=== PATIENT | female | born 1985 | race Caucasian/White ===

== ENCOUNTER 2020-02-22 10:15 | Observation (INO) | payer BC, SELFPAY ==
[2020-02-22 10:30] VITALS: BMI 33.3
[2020-02-22 12:18] LABS: Add Urine Microscopic? YES; Appearance Urine Clear (Clear); Bacteria Urine Trace /hpf; Bilirubin Urine Negative (Negative); Blood Urine Negative (Negative); Color Urine Yellow (Yellow); Glucose Urine UA Negative (Negative); Ketones Urine Negative (Negative); Leukocyte Esterase Ur Trace LEU/UL (Negative); Mucus Urine Rare /lpf; Nitrate Urine Negative (Negative); Protein Urine Negative (Negative); RBC Urine 0-2 /hpf (0-2); Specific Grav Ur 1.012 (1.001-1.035); Squamous Epithelial Cell Urine Many /hpf (Few); Urobilinogen Urine Negative mg/dL (<2.0)
--- NOTE | 2020-02-22 17:22 | OBADM ---
This patient, Adriana Pedraza, admitted to the OB room Labor/Delivery/Recovery 119 for observation. Patient/family oriented to hospital policies and general routines including ID bracelet, bed and alarms, visiting hours, pain management, procedures, bathroom and other care routines, personal items, smoking policy, room service/diet, and visiting hours. Patient/Family are encouraged to report perceived risks to care and to ask questions if they do not understand what they are told or what they should do.
--- NOTE | 2020-02-26 08:21 | P.PNOB_ITS ---
OB - Triage/Final Diagnosis Evaluation Laboratory results: Laboratory Tests 02/22/20 11:56 Urine Color Yellow Urine Appearance Clear Urine pH 7.0 Ur Specific [place] 1.012 Urine Protein Negative Urine Glucose (UA) Negative Urine Ketones Negative Ur Blood (Man) Negative Urine Nitrate Negative Urine Bilirubin Negative Urine Urobilinogen Negative Leukocyte Esterase Rfl Trace H Urine RBC 0-2 Urine WBC 4-6 H Ur Squamous Epith Cells Many H Urine Bacteria Trace Urine Mucus Rare Final Diagnosis (1) False labor: Code(s): O47.9 - False labor, unspecified Status: Acute
== END 2020-02-22 13:55 | disposition home or self-care (01) ==
PROVIDERS: Admitting Provider Obstetrics & Gynecology Gynecology; PCP Family Medicine; Visit Provider Obstetrics & Gynecology Gynecology
DX: O47.03 False labor before 37 completed weeks of gestation, third trimester (principal); Z3A.36 36 weeks gestation of pregnancy
CPT/HCPCS: 81001; G0378; G0379

== ENCOUNTER 2020-03-12 15:10 | Outpatient (CLI) | payer BC, SELFPAY ==
[2020-03-12 15:56] LABS: Hematocrit 32.5 % (37.0-47.0); Hemoglobin 10.8 g/dL (12.0-15.0); Mean Corpuscular HGB Conc 33.2 g/dl (32-36); Mean Corpuscular Hemoglobin 27.4 pg (26-34); Mean Corpuscular Volume 82.5 fl (80-100); Mean Platelet Volume 11.2 fl (7.4-10.4); Platelet Count Result 168 k/mm3 (150-375); Red Blood Count 3.94 M/mm3 (4.2-5.4); Red Cell Distribution Width 14.2 % (11.5-14.5); White Blood Count 9.3 K/mm3 (4.5-10.0)
[2020-03-13 07:09] LABS: Rapid Plasma Reagin Non-Reactive (NonReactive)
--- NOTE | 2020-03-13 14:43 | OP_ITS ---
DATE OF PROCEDURE: 03/13/2020 PREOPERATIVE DIAGNOSES: 1. Intrauterine at 39 weeks. 2. Previous delivery. POSTOPERATIVE DIAGNOSES: 1. Intrauterine at 39 weeks. 2. Previous delivery. PROCEDURE PERFORMED: Repeat low-transverse section. SURGEON: Demetra Bansal M.D. ANESTHESIA: Spinal. FINDINGS: Male infant, 8 pounds 11 ounces. Apgars of 7 and 9. Normal-appearing tubes, ovaries, and uterus. There was dense fascial scar tissue as well as the peritoneum being densely adherent to the mid portion of the uterus. The peritoneum is also densely scarred lateral at the level of the incision. ESTIMATED BLOOD LOSS: 275 cc. PATHOLOGY: None. DESCRIPTION OF PROCEDURE: The patient was taken to the operating room, placed under anesthesia in the dorsal supine position with a leftward tilt. Once anesthesia was deemed adequate, the patient was prepped and draped. A Pfannenstiel skin incision was made with a scalpel and carried down to the underlying layer of fascia. Fascia was nicked in the midline and extended laterally using Mathias scissors. Ochsners were used to tent the fascia, which was then dissected off using sharp dissection due to adhesions. The peritoneum is entered with Metzenbaum and attempted to be extended laterally using blunt traction. Due to dense scar tissue on to the fascia in the midline as well as laterally at the level of the in incision, Bovie cautery is used to extend the peritoneum. The incision was again extended with blunt traction. The bladder blade was placed. The vesicouterine peritoneum was tented, entered with Metzenbaums, extended laterally. The bladder flap was created using sharp and blunt dissection. The bladder blade was replaced. The lower uterine segment was incised in a transverse fashion with a scalpel. The incision was extended laterally using blunt traction. Membranes were ruptured. Clear fluid was noted. The infant's head is elevated and the senior sales assistant applied fundal pressure. Due to all of the scar tissue, there is minimal flexibility of the incision. Decision was made to use vacuum in order to not have my gloved hand in the incision giving more room. Vacuum was applied and on the first attempt the head was delivered. The remainder of the was then delivered. The cord was clamped and cut, and the infant handed to the awaiting OB nurse. The placenta was removed using manual traction. The uterus was cleared of all clots and debris. The uterus was unable to be exteriorized due to all of the adhesions to the peritoneum, especially densely in the midline and to the right. The uterine incision was grasped on the lower edge with a ring forceps. Bladder blade was replaced. Customer Consulting Manager applied retraction to the anterior abdominal wall. The uterine incision was closed using 0 Monocryl in a running locked fashion. Same suture was used to imbricate. Good hemostasis was noted. Bovie cautery was required on the peritoneal surfaces that are oozing. The gutters are irrigated. There is a band of scar tissue that could potentially lead to bowel complications. This was incised with Bovie cautery and the adhesion was released. Palpation reveals no other bands of tissue. The incision was again inspected and noted to be hemostatic. Fascia was closed using 0 Vicryl in a running fashion. Subcutaneous tissues are made hemostatic using Bovie cautery. Skin was closed using 4-0 Vicryl in a subcuticular fashion. Dermaflex was placed. Sponge, instrument and needle counts are correct per the OR staff. The patient received Ancef prior to skin incision. Tere I MT: [facility]
== END 2020-03-12 15:11 | disposition home or self-care (01) ==
PROVIDERS: PCP Family Medicine; Visit Provider Obstetrics & Gynecology Gynecology
DX: Z01.818 Encounter for other preprocedural examination (principal)
CPT/HCPCS: 36415; 85027; 86592; 86850; 86900; 86901

== ENCOUNTER 2020-03-13 05:35 | Inpatient (IN) | payer BC, SELFPAY ==
--- NOTE | 2020-02-18 15:54 | PC.NURSE ---
VERIFIED WITH OR SCHEDULE AND PATIENT--C/S ON 03/13/20 AT 0730 PATIENT GIVEN REQUISITION FOR LAB DRAW ON 03/12/20
[2020-03-12 16:00] VITALS: BMI 34.0
[2020-03-13] VITALS (57 sets, daily range): BP systolic 88–137; BP diastolic 61–105; PULSE 36–107; RESP 18; TEMP 36.2–37; O2SAT 91–100
--- NOTE | 2020-03-13 05:54 | LDADM ---
This patient, Adriana Pedraza, was admitted to Labor/Delivery/Recovery 120 on 03/13/20 at 05:35. Plans for labor, pain management and were discussed with patient. Patient/family oriented to hospital policies and general routines including ID bracelet, bed and alarms, visiting hours, pain management, procedures, bathroom and other care routines, personal items, smoking policy, room service/diet and guest tray routines, infant security routines, and visiting hours. Patient/Family are encouraged to report perceived risks to care and to ask questions if they do not understand what they are told or what they should do. See OBIX for further documentation.
[2020-03-13] MEDS: LACTATED RINGERS 1,000 ML 125 ML IV CONT (06:19)
--- NOTE | 2020-03-13 06:58 | WPDANESEPPF ---
Anes - Initial Pre Proc Eval Procedure: Operation Date: 03/13/20 07:30 Proposed Procedures p Repeat Section - Demetra Bansal MD Date/Time: 03/13/20 06:58 Surgeon: Demetra Bansal MD Pre Op Diagnosis: Scheduled C Section Patient Data Age: 34 Gender: F Height: Weight: Last Vital Signs Pulse 81 03/13/20 06:16 BP 134/89 03/13/20 06:16 Allergies Allergy/AdvReac Type Severity Reaction Status Date / Time No Known Drug Allergies Allergy Unknown X Verified 12/26/17 13:43 Sulfa (Sulfonamide Allergy Hives Verified 02/18/20 15:39 Antibiotics) MOLD, FEATHER PILLOWS, Allergy Severe SINUS Uncoded 07/14/06 14:14 COMFORTERS PROBLEMS Home Medications Medication Instructions Recorded Confirmed Type PNV cmb#95-ferrous fumarate-FA 1 tablet PO DAILY 02/18/20 03/13/20 History [] Patient hx anesthesia problems: none Family hx anesthesia problems: none PMFSH Surgical History Surgical History (Updated 03/13/20 @ 06:58 by Yordan Ferrari MD) Previous delivery, delivered Family History Family History Father Heart disease Arthritis, rheumatoid Grandparent Diabetes mellitus Social History Social History Smoking status: Never smoker Substance use: never Spiritual care concerns: No Anes - Eval Final PreProcedure Day of Procedure 03/13/20 06:58 Patient weight: overweight Heart: regular rate and rhythm Lungs: clear to auscultation Airway: Mallampati scale class 1 Neurological: alert and oriented Last oral intake: >/= 8 hours ASA classification: II Emergent: no Anesthetic plan: proceed Anesthesia type and monitoring: regional spinal and standard monitoring Informed Consent: The patient's anesthetic plan and its attendant risks and benefits were discussed with the patient/family/POA. Questions were solicited and answers provided to the satisfaction of the patient/family/POA.
--- NOTE | 2020-03-13 07:08 | PM.IMHP ---
H&P: HPI History of Present Illness Chief complaint: Scheduled C Section Narrative: Adriana Pedraza is a 34 year old female at 39 wks here for repeat LTCS. uncomplicated but did conceive with Clomid. labs: O+; RPR-; HIV-; HBSAg -; GBS-. [facility] Surgical History Surgical History (Updated 03/13/20 @ 07:12 by Demetra Bansal MD) Previous delivery, delivered S/P LEEP Family History Family History Father Heart disease Arthritis, rheumatoid Grandparent Diabetes mellitus Social History Social History Smoking status: Never smoker Substance use: never Spiritual care concerns: No Meds Home Medications and Allergies Home Medications Medication Instructions Recorded Confirmed Type PNV cmb#95-ferrous fumarate-FA 1 tablet PO DAILY 02/18/20 03/13/20 History [] Allergies Allergy/AdvReac Type Severity Reaction Status Date / Time No Known Drug Allergies Allergy Unknown X Verified 12/26/17 13:43 Sulfa (Sulfonamide Allergy Hives Verified 02/18/20 15:39 Antibiotics) MOLD, FEATHER PILLOWS, Allergy Severe SINUS Uncoded 07/14/06 14:14 COMFORTERS PROBLEMS Vital Signs Vital Signs - 24 hr 03/13/20 05:53 03/13/20 06:01 03/13/20 06:16 Pulse Rate 79 71 81 Blood Pressure 131/85 133/79 134/89 Exam Resp: Auscultation: clear to auscultation bilaterally Cardio: Rate: regular rate Rhythm: regular rhythm GI: GI Palp: Yes Soft to palpation Percussion: Yes other (gravid) Assessment and Plan Assessment and plan (1) 39 weeks gestation of : Code(s): Z3A.39 - 39 weeks gestation of Status: Acute (2) History of : Code(s): Z98.891 - History of uterine scar from previous surgery Status: Acute Assessment and Plan: patient declined trial of labor and wishes to proceed with repeat csection
[2020-03-13] MEDS: ceFAZolin 2 GM/D5W 50 ML 2 GM/50 ML BAG IVPB (07:18)
--- NOTE | 2020-03-13 08:25 | PM.OP ---
Procedure Note - Brief Procedure Note - Brief Date of procedure: 03/13/20 Pre-op diagnosis: Scheduled C Section IUP 39 wks; Prior csection Post-op diagnosis: same Procedure performed: repeat LTCS Anesthesia: spinal Surgeon: Demetra Bansal MD Estimated blood loss (mL): 275 Drains: Yes (blake) Packing: No Pathology: none sent Complications: No immediate complications Condition: stable Disposition: PACU Findings: male; 8#11oz; Apgars 7/9; normal appearing tubes, ovaries, and uterus; dense scar tissue from peritoneum to mid uterus; fascia densely scarred
--- NOTE | 2020-03-13 08:27 | PM.OBDSVD ---
DS: Diagnosis Admitting Diagnosis Admitting Diagnosis: 39 weeks gestation of Discharge Diagnosis (1) History of : Code(s): Z98.891 - History of uterine scar from previous surgery Status: Acute (2) 39 weeks gestation of : Code(s): Z3A.39 - 39 weeks gestation of Status: Acute (3) delivery delivered: Code(s): O82 - Encounter for delivery without indication Status: Acute OB - DS: Summary OB Procedures : Ultrasound OB Procedures Intrapartum: low cervical, transverse OB Procedures: : None Peripartum Data Infant Delivery Method: Section Procedures: Procedures Operation Date: 03/13/20 07:30 <No data on this case meets the specified criteria> complications: none Status at Discharge Functional status at discharge: independent ambulation Overall status at discharge: patient is progressing back to baseline Time Spent with Patient Time attestation: Total time spent providing and/or coordinating discharge services: Discharge Plan Discharge Attending physician on discharge: Demetra Bansal Discharging Clinician: Nicanor Loredo Anticipated Discharge Date/Time: 03/15/20 08:28 Patient Disposition: Home, Self-Care Activity: may drive after 2 weeks and pelvic rest Diet: regular Wound Care Instructions: incision open to air Discharge Instructions: Education: Mom and Baby Guide Given to: Mother Follow-Up: Call your delivering provider's office for an appointment to be seen. Mom and baby should come to the [facility] for the follow-up appointment. Appointment Date/Time: March 17, 2020 at 10:00 am. What to expect at your follow-up visit: Physical Assessment Call [phone] if you are unable to keep your appointment time. BREAST CARE: 1. Wear a snug supportive bra. 2. For engorgement discomfort: Breast Feeding: A. Apply warm moist washcloths B. Express milk as needed to relieve engorgement C. Wear loose clothing 3. For sore nipples: A. Identify correct latch-on B. Apply warm moist washcloths before and after nursing C. Air dry nipples after nursing D. May apply Lansinoh cream to nipples ABDOMINAL INCISION: 1. Allow incision to air dry 2. Do NOT use lotions for powders on your incision 3. When showering, allow soap and water to run over the incision, but do not wash incision PERINEAL CARE: 1. Until bleeding stops, use your césar bottle after urinating 2. Change your pad frequently throughout the day 3. You may take sitz baths several times a day (fill your bathtub with warm water and soak for 20 minutes.) Do NOT bathe in the water 4. No tub baths until seen by your physician - You may shower ACTIVITY: 1. Rest as much as possible. 2. Do not exercise or lift anything heavier than your baby (such as laundry or other children.) 3. Avoid stairs or driving as much as possible. 4. Do not put anything into the vagina. No douching, tampons, or sexual activity until seen by physician. NOTIFY PHYSICIAN IF YOU HAVE ANY QUESTIONS OR IF ANY OF THE FOLLOWING SYMPTOMS OCCUR: 1. If your incision becomes red, swollen, or more painful than what you have experienced in the hospital. 2. If your vaginal bleeding becomes foul smelling. 3. If your vaginal bleeding becomes more heavy than a period or if your bleeding changes from pink to bright red. However, you may pass an occasional walnut-sized clot once or twice for the first week . 4. If you experience a sharp, shooting pain in you calves. 5. If you discover a hard, reddened area on your breast or if you experience flu-like symptoms. DIET: 1. Eat regular, well-balanced meals. 2. Drink plenty of fluids daily. If , drink to thirst. Stand Alone Forms: General Discharge Information Follow-up/Referrals: Demetra Bansal MD
--- NOTE | 2020-03-13 09:41 | OP_ITS ---
This report was moved to the correct visit, [id number] on 03/14/2020. Original report was signed by Dr. Demetra Bansal on 03/13/2020 @ 1600. DATE OF PROCEDURE: 03/13/2020 PREOPERATIVE DIAGNOSES: 1. Intrauterine at 39 weeks. 2. Previous delivery. POSTOPERATIVE DIAGNOSES: 1. Intrauterine at 39 weeks. 2. Previous delivery. PROCEDURE PERFORMED: Repeat low-transverse section. SURGEON: Demetra Bansal M.D. ANESTHESIA: Spinal. FINDINGS: Male , 8 pounds 11 ounces. Apgars of 7 and 9. Normal-appearing tubes, ovaries, and uterus. There was dense fascial scar tissue as well as the peritoneum being densely adherent to the mid portion of the uterus. The peritoneum is also densely scarred lateral at the level of the incision. ESTIMATED BLOOD LOSS: 275 cc. PATHOLOGY: None. DESCRIPTION OF PROCEDURE: The patient was taken to the operating room, placed under anesthesia in the dorsal supine position with a leftward tilt. Once anesthesia was deemed adequate, the patient was prepped and draped. A Pfannenstiel skin incision was made with a scalpel and carried down to the underlying layer of fascia. Fascia was nicked in the midline and extended laterally using Mathias scissors. Ochsners were used to tent the fascia, which was then dissected off using sharp dissection due to adhesions. The peritoneum is entered with Metzenbaum and attempted to be extended laterally using blunt traction. Due to dense scar tissue on to the fascia in the midline as well as laterally at the level of the in incision, Bovie cautery is used to extend the peritoneum. The incision was again extended with blunt traction. The bladder blade was placed. The vesicouterine peritoneum was tented, entered with Metzenbaums, extended laterally. The bladder flap was created using sharp and blunt dissection. The bladder blade was replaced. The lower uterine segment was incised in a transverse fashion with a scalpel. The incision was extended laterally using blunt traction. Membranes were ruptured. Clear fluid was noted. The infant's head is elevated and the parts room assistant applied fundal pressure. Due to all of the scar tissue, there is minimal flexibility of the incision. Decision was made to use vacuum in order to not have my gloved hand in the incision giving more room. Vacuum was applied and on the first attempt the head was delivered. The remainder of the infant was then delivered. The cord was clamped and cut, and the infant handed to the awaiting OB nurse. The placenta was removed using manual traction. The uterus was cleared of all clots and debris. The uterus was unable to be exteriorized due to all of the adhesions to the peritoneum, especially densely in the midline and to the right. The uterine incision was grasped on the lower edge with a ring forceps. Bladder blade was replaced. Hop Separator applied retraction to the anterior abdominal wall. The uterine incision was closed using 0 Monocryl in a running locked fashion. Same suture was used to imbricate. Good hemostasis was noted. Bovie cautery was required on the peritoneal surfaces that are oozing. The gutters are irrigated. There is a band of scar tissue that could potentially lead to bowel complications. This was incised with Bovie cautery and the adhesion was released. Palpation reveals no other bands of tissue. The incision was again inspected and noted to be hemostatic. Fascia was closed using 0 Vicryl in a running fashion. Subcutaneous tissues are made hemostatic using Bovie cautery. Skin was closed using 4-0 Vicryl in a subcuticular fashion. Dermaflex was placed. Sponge, instrument and needle counts are correct per the OR staff. The patient received Ancef prior to skin incision.
[2020-03-13] MEDS: KETOROLAC 30 MG/ML VIAL (*BKC) IV PUSH (10:07)
[2020-03-13] MEDS: OXYTOCIN 30 UNITS/NS 500 ML 30 UNITS/500 ML BAG 125 UNITS IV CONT (10:07)
--- NOTE | 2020-03-13 11:29 | PC.NURSE ---
Addendum entered by Mansi Pelayo RN 03/13/20 11:30: Admitted to floor at 1047. Original Note: Patient transferred to post room #282 via stretcher. Support person present. Oriented to unit, room, information board, rooming in, admission packet and security measures. Patient verbalizes understanding.
--- NOTE | 2020-03-13 12:50 | PC.NURSE ---
Consulted with patient, mother reports infant eagerly fed for first two feedings and now is sleepy and difficult to latch. Reviewed feeding cues, frequencies, duration of feedings, feeding elimination flow sheet, and signs of adequate intake. Demonstrated stimulation techniques to wake infant for feeding. Assisted with infant to breast. Reviewed positioning/alignment in cross cradle, holding breast in U hold and guided asymmetrical latch on. was able to latch correctly with first attempt. nursed eagerly, with steady draws and frequent swallowing noted. Reviewed signs of a correct latch, effective nursing and suck swallow ratio. was able to maintain latch without discomfort to mother. Nipple care reviewed. Advised to stimulate during feeding to increased intake and assist with maintaining deep latch with consistent suck swallow. Instructed mother to call out for RN assistance if she is unable to latch infant for feeding or she has discomfort with nursing. Instructed feeding should be initiated three hours from start of last feeding or if feeding cues are noted before. Mother voiced understanding of information shared.
--- NOTE | 2020-03-13 14:40 | OP_ITS ---
Operative Note Signed This report was moved to the correct visit, [id number] on 03/14/2020. Original report was signed by Dr. Demetra Bansal on 03/13/2020 at 1600. PREOPERATIVE DIAGNOSES: 1. Intrauterine at 39 weeks. 2. Previous delivery. POSTOPERATIVE DIAGNOSES: 1. Intrauterine at 39 weeks. 2. Previous delivery. PROCEDURE PERFORMED: Repeat low-transverse section. SURGEON: Demetra Bansal M.D. ANESTHESIA: Spinal. FINDINGS: Male infant, 8 pounds 11 ounces. Apgars of 7 and 9. Normal-appearing tubes, ovaries, and uterus. There was dense fascial scar tissue as well as the peritoneum being densely adherent to the mid portion of the uterus. The peritoneum is also densely scarred lateral at the level of the incision. ESTIMATED BLOOD LOSS: 275 cc. PATHOLOGY: None. DESCRIPTION OF PROCEDURE: The patient was taken to the operating room, placed under anesthesia in the dorsal supine position with a leftward tilt. Once anesthesia was deemed adequate, the patient was prepped and draped. A Pfannenstiel skin incision was made with a scalpel and carried down to the underlying layer of fascia. Fascia was nicked in the midline and extended laterally using Mathias scissors. Ochsners were used to tent the fascia, which was then dissected off using sharp dissection due to adhesions. The peritoneum is entered with Metzenbaum and attempted to be extended laterally using blunt traction. Due to dense scar tissue on to the fascia in the midline as well as laterally at the level of the in incision, Bovie cautery is used to extend the peritoneum. The incision was again extended with blunt traction. The bladder blade was placed. The vesicouterine peritoneum was tented, entered with Metzenbaums, extended laterally. The bladder flap was created using sharp and blunt dissection. The bladder blade was replaced. The lower uterine segment was incised in a transverse fashion with a scalpel. The incision was extended laterally using blunt traction. Membranes were ruptured. Clear fluid was noted. The 's head is elevated and the religious assistant applied fundal pressure. Due to all of the scar tissue, there is minimal flexibility of the incision. Decision was made to use vacuum in order to not have my gloved hand in the incision giving more room. Vacuum was applied and on the first attempt the head was delivered. The remainder of the was then delivered. The cord was clamped and cut, and the infant handed to the awaiting OB nurse. The placenta was removed using manual traction. The uterus was cleared of all clots and debris. The uterus was unable to be exteriorized due to all of the adhesions to the peritoneum, especially densely in the midline and to the right. The uterine incision was grasped on the lower edge with a ring forceps. Bladder blade was replaced. Oracle Identity Management Consultant applied retraction to the anterior abdominal wall. The uterine incision was closed using 0 Monocryl in a running locked fashion. Same suture was used to imbricate. Good hemostasis was noted. Bovie cautery was required on the peritoneal surfaces that are oozing. The gutters are irrigated. There is a band of scar tissue that could potentially lead to bowel complications. This was incised with Bovie cautery and the adhesion was released. Palpation reveals no other bands of tissue. The incision was again inspected and noted to be hemostatic. Fascia was closed using 0 Vicryl in a running fashion. Subcutaneous tissues are made hemostatic using Bovie cautery. Skin was closed using 4-0 Vicryl in a subcuticular fashion. Dermaflex was placed. Sponge, instrument and needle counts are correct per the OR staff
[2020-03-13] MEDS: KCL 20 MEQ/D5/0.45% SOD CHL 1,000 ML 125 ML IV CONT (15:16)
[2020-03-13] MEDS: IBUPROFEN 600 MG TABLET PO (15:22)
--- NOTE | 2020-03-13 16:20 | PC.NURSE ---
Mother called out for assist with latch reporting is sleepy and difficult to latch. Reviewed infant feeding cues, frequencies, duration of feedings, feeding elimination flow sheet, and signs of adequate intake. Demonstrated stimulation techniques to wake for feeding. Assisted with to breast. Reviewed positioning/alignment in cross cradle, holding breast in U hold and guided asymmetrical latch on. Infant was able to latch correctly with first attempt. nursed eagerly, with steady draws and frequent swallowing noted. Reviewed signs of a correct latch, effective nursing and suck swallow ratio. was able to maintain latch without discomfort to mother. Nipple care reviewed. Advised to stimulate during feeding to increased intake and assist with maintaining deep latch with consistent suck swallow. Instructed mother to call out for RN assistance if she is unable to latch infant for feeding or she has discomfort with nursing. Instructed feeding should be initiated three hours from start of last feeding or if feeding cues are noted before. Mother voiced understanding of information shared.
[2020-03-13] MEDS: ONDANSETRON INJ 4 MG/2 ML VIAL IV PUSH (18:14)
[2020-03-14] MEDS: IBUPROFEN 600 MG TABLET PO ×2 (05:07→10:55)
[2020-03-14 05:20] VITALS: BP 133/78; PULSE 87; RESP 18; TEMP 37.3
[2020-03-14 06:03] LABS: Basophils Percent Auto 0.2 % (0.2-1.2); Eosinophils Absolute Auto 0.1 K/mm3 (0-0.3); Eosinophils Percent Auto 0.7 % (0-4.4); Hematocrit 28.7 % (37.0-47.0); Hemoglobin 9.5 g/dL (12.0-15.0); Immature Granulocyte Percent A 0.8 % (0-0.5); Lymphocytes Absolute Auto 1.55 K/mm3 (0.9-3.2); Lymphocytes Percent Auto 12.9 % (18.3-44.2); Mean Corpuscular HGB Conc 33.1 g/dl (32-36); Mean Corpuscular Hemoglobin 27.2 pg (26-34); Mean Corpuscular Volume 82.2 fl (80-100); Mean Platelet Volume 11.5 fl (7.4-10.4); Monocytes Absolute Auto 0.8 K/mm3 (0.1-0.6); Monocytes Percent Auto 6.9 % (2.6-8.5); Neutrophils Absolute Auto 9.4 K/mm3 (1.3-6.7); Neutrophils Percent Auto 78.5 % (45.5-73.1); Platelet Count Result 163 k/mm3 (150-375); Red Blood Count 3.49 M/mm3 (4.2-5.4); Red Cell Distribution Width 14.3 % (11.5-14.5)
[2020-03-14 08:10] VITALS: BP 120/68; PULSE 82; RESP 18; TEMP 37; O2SAT 97
[2020-03-14] MEDS: DOCUSATE SODIUM 100 MG CAPSULE PO (09:24)
[2020-03-14] MEDS: POLYSACCHARIDE IRON COMPLEX 150 MG CAPSULE PO (09:24)
[2020-03-14] MEDS: MULTIVIT/MIN/PREN/FOL AC/IRON TABLET 1 TAB PO (09:24)
[2020-03-14] MEDS: CALCIUM CARBONATE (TUMS) 500 MG (200 MG ELEMENTAL) PO (11:05)
--- NOTE | 2020-03-14 11:07 | P.PNOB_ITS ---
OB - PN: Subj Subjective Date/time seen: 03/14/20 11:07 Patient comments: no complaints and pain well controlled baby status: doing well OB - PN: Obj Data Labs CBC & Chem 7: 03/14/20 05:16 Labs: Laboratory Results - last 24 hr 03/14/20 05:16 WBC 12.0 H RBC 3.49 L Hgb 9.5 L Hct 28.7 L MCV 82.2 MCH 27.2 MCHC 33.1 RDW 14.3 Plt Count 163 MPV 11.5 H Immature Gran % (Auto) 0.8 H Neut % (Auto) 78.5 H Lymph % (Auto) 12.9 L [place] % (Auto) 6.9 Eos % (Auto) 0.7 Baso % (Auto) 0.2 Lymph # (Auto) 1.55 [place] # (Auto) 0.8 H Eos # (Auto) 0.1 Baso # (Auto) 0.0 Abs Immat Gran (auto) 0.10 H Absolute Neuts (auto) 9.4 H Absolute Nucleated RBC 0.0 Nucleated RBC % 0.0 OB - PN A/P Assessment and Plan (1) delivery delivered: Code(s): O82 - Encounter for delivery without indication Status: Acute Assessment and Plan: incision clean and dry desires home today. Time Spent With Patient Time: Total time spent is greater than 50% in coordination of care (as documented) at patient's floor/unit and/or counseling patient:
--- NOTE | 2020-03-14 11:24 | WPDANLDPN2 ---
Anes-Prog Note L&D Date/Time: 03/14/20 11:24 Comfortable throughout: section Neuraxial method: spinal Epidural/Spinal procedure site: clean & non-tender Neuro status: Neuro function grossly intact. Cardiovascular status: normal Respiratory status: normal Airway patency: baseline Mental status: baseline Post-Op hydration status: normal Vital Signs: Last Vital Signs Temp 37.0 C 03/14/20 08:10 Pulse 82 03/14/20 08:10 Resp 18 03/14/20 08:10 BP 120/68 03/14/20 08:10 Pulse Ox 97 03/14/20 08:10 I/O: Intake & Output 03/13/20 03/14/20 03/14/20 23:59 07:59 15:59 Intake Total 1600 850 Output Total 1200 3975 Balance 400 -3125 Post-procedural complaints: none Patient feedback: Patient satisfied with anesthetic care.
--- NOTE | 2020-03-14 11:24 | WPDANLDNPN2 ---
Anes-Prog Note L&D-Neuraxial Date/Time: 03/14/20 11:24 Neuraxial medications: intrathecal PF morphine Opiod-related complaints: none Patient feedback: Patient satisfied with post-operative pain management.
[2020-03-17 10:39] VITALS: BP 142/98; PULSE 85; RESP 20; TEMP 37.4; O2SAT 98
== END 2020-03-14 13:22 | disposition home or self-care (01) | DRG 788 ==
LOC: ANHLDR 08:28 → ANHOB2 03-14 12:33 → ANHLDR 03-17 11:26 → ANHOB2 03-17 11:26
PROVIDERS: Admitting Provider Obstetrics & Gynecology Gynecology; PCP Family Medicine; Visit Provider Obstetrics & Gynecology
PROC: 10D00Z1 Extraction of Products of Conception, Low, Open Approach (ICD-10-PCS; CPT 59514; principal; 2020-03-13 07:30)
DX: O34.211 Maternal care for low transverse scar from previous cesarean delivery (principal); Z37.0 Single live birth; Z3A.39 39 weeks gestation of pregnancy
CPT/HCPCS: 36415; 85025; A9270; J0131; J0690; J1885; J2274; J2405; J2590; J3010; J3480; J7120

== ENCOUNTER → 2022-03-03 14:56 | Outpatient (CLI) | payer OTHER, SELFPAY ==
--- NOTE | ~2022-03-03 | MM_ITS ---
EXAMINATION: MM screening [facility] HISTORY: Screening TECHNIQUE: Craniocaudal and mediolateral oblique 3-D tomosynthesis images were obtained and synthetic 2-D images were generated. CAD analysis was submitted and interpreted. COMPARISON: No prior mammogram is available for comparison at this institution. BREAST PARENCHYMAL COMPOSITION: There are scattered areas of fibroglandular density. FINDINGS: There is no evidence of suspicious mass, calcification, or architectural distortion to sugg est malignancy in either breast. There has been no suspicious interval change. IMPRESSION: 1. No mammographic evidence of malignancy. 2. Recommend routine screening mammography in one year. BI-RADS Category 1: Negative Reviewed, dictated and finalized at location A.
== END ==
PROVIDERS: PCP Family Medicine; Visit Provider Surgery Plastic and Reconstructive Surgery
DX: Z12.31 Encounter for screening mammogram for malignant neoplasm of breast (principal)
CPT/HCPCS: 77063; 77067

== ENCOUNTER 2022-04-09 08:01 | Outpatient (CLI) | payer OTHER, SELFPAY ==
--- NOTE | 2022-04-09 08:11 | ECG_ITS ---
Measurements Intervals Ralph Rate: 78 P: 50 [place]: 138 QRS: 40 QRSD: 80 T: 29 QT: 356 QTc: 406 Interpretive Statements SINUS RHYTHM BASELINE ARTIFACT NORMAL ECG NO PREVIOUS ECG AVAILABLE FOR COMPARISON Electronically Signed On 04-09-2022 16:58:00 CDT by Gomez Solitario M.D.
[2022-04-09 08:25] LABS: Hemoglobin 13.7 g/dL (12.0-15.0)
== END 2022-04-09 08:02 | disposition home or self-care (01) ==
PROVIDERS: Anesthesiology; PCP Family Medicine; Visit Provider Surgery Plastic and Reconstructive Surgery
DX: E65 Localized adiposity (principal)
CPT/HCPCS: 36415; 85014; 85018; 93005

== ENCOUNTER 2022-04-13 00:22 | Day surgery (SDC) | payer OTHER, SELFPAY ==
[2022-04-06 13:55] VITALS: BMI 28.3
--- NOTE | 2022-04-06 14:00 | PC.NURSE ---
Report to the Outpatient Waiting Room, entrance under the green pavilion located off [facility], at time _0800_ on date _04-13-22_. OR Time: _1000_. - You and your visitor will be asked a series of questions to screen for COVID 19 for your protection. - Only one visitor is allowed at this time. - The patient visitor is requested to leave or wait in car when not with patient. - A mask is required within the hospital. Patients may have clear liquids (water, carbonated beverages, clear teas, apple juice) until 3 hours prior to surgery with a maximum of 20 ounces. - No food from midnight until time of surgery Take the following medications with a SIP of water the morning of surgery: ___None Medications to discontinue per physician ____None Date to take last dose Please no make-up, nail cape verdean, hairspray, perfume, deodorant, or body powder the day of surgery. No jewelry (including any body piercings) or valuables the day of surgery, leave them at home. Please take a shower or bath the night before, or the morning of, surgery with an antibacterial soap. Wear comfortable, loose fitting clothing. Children are encouraged to wear pajamas. - Jewelry must be removed prior to entering the operating room. Rings and piercings that are not removed may be cut off. - The hospital will not accept responsibility for valuables. - Please leave all valuables, including medications, at home the day of surgery. If you are going home after surgery, a licensed local city driver must drive you home. - NO public transportation without another adult. - We recommend that an adult stay with you for 24 hours following discharge. - We also recommend that you do not drive, make important decision, drink alcoholic beverages, or take any drugs that were not prescribed by your health care provider for at least 24 hours after your discharge time. Follow any additional instructions given to you from your surgeon. If you or anyone in your household have experienced Covid symptoms in the past week, please notify your surgeon or the nurse liaison at the phone number below for possible testing. Telephone instructions given to __Patient and asked if any additional questions and then verbalized understanding. Patient advised to call surgeon office or pre surgery nurse liaison [phone] if any additional questions.
--- NOTE | 2022-04-12 13:50 | P.PNAN_ITS ---
Anes - Initial Pre Proc Eval Procedure: Operation Date: 04/13/22 10:00 Proposed Procedures p Abdominoplasty - Senthil Rasheed MD s Liposuction of Abdomen - Senthil Rasheed MD s Bilateral Breast Augmentation - Senthil Rasheed MD Date/Time: 04/12/22 13:50 Surgeon: Senthil Rasheed MD Pre Op Diagnosis: skin laxity, localized adiposity Patient Data Age: 36 Gender: F Height: 1.63 m Weight: 75 kg Allergies Allergy/AdvReac Type Severity Reaction Status Date / Time Sulfa (Sulfonamide Allergy Severe Hives Verified 04/13/22 08:14 Antibiotics) MOLD, FEATHER PILLOWS, Allergy Severe SINUS Uncoded 04/13/22 08:14 COMFORTERS PROBLEMS Home Medications Medication Instructions Recorded Confirmed Type docusate sodium 100 mg capsule 100 mg PO DAILY #14 caps 03/30/22 04/13/22 Rx (Colace) ondansetron HCl 4 mg tablet 4 mg PO Q8H #21 tabs 03/30/22 04/13/22 Rx carisoprodol 350 mg tablet (Soma) 350 mg PO TID PRN muscle pain #21 03/31/22 04/13/22 Rx tabs oxycodone-acetaminophen 5 mg-325 1 tablet PO Q6H PRN pain #30 tabs 03/31/22 04/13/22 Rx mg tablet (Percocet) cetirizine 10 mg tablet (Zyrtec) 10 mg PO DAILY 04/06/22 04/13/22 History Patient hx anesthesia problems: none Family hx anesthesia problems: none Results Review: All pre-operative results and documents have been reviewed as part of the pre- operative evaluation. FORMERLY [facility], [facility] Past Medical History Medical History (Updated 04/12/22 @ 13:51 by Yogesh Shelton MD) Overweight (BMI 25.0-29.9) Surgical History Surgical History Previous delivery, delivered S/P LEEP Family History Family History Father Heart disease Arthritis, rheumatoid Grandparent Diabetes mellitus Social History Social History Smoking status: Never smoker Substance use: never Living arrangements: with family Spiritual care concerns: No Anes - Eval Final PreProcedure Day of Procedure 04/12/22 13:50 Patient weight: overweight Heart: regular rate and rhythm Lungs: clear to auscultation Airway: Mallampati scale class 1 Neurological: alert and oriented Last oral intake: >/= 8 hours ASA classification: II Emergent: no Anesthetic plan: proceed Anesthesia type and monitoring: general LMA and standard monitoring Results Review: All pre-operative results and documents have been reviewed as part of the pre- operative evaluation. Informed Consent: The patient's anesthetic plan and its attendant risks and benefits were discussed with the patient/family/POA. Questions were solicited and answers provided to the satisfaction of the patient/family/POA.
[2022-04-13] VITALS (11 sets, daily range): BP systolic 113–145; BP diastolic 75–93; PULSE 80–100; RESP 10–20; TEMP 36.4–37.3; O2SAT 95–100
[2022-04-13] MEDS: LACTATED RINGERS 1,000 ML 30 ML IV CONT ×2 (08:50→14:43)
[2022-04-13 09:11] LABS: Urine Cotinine NEGATIVE
--- NOTE | 2022-04-13 09:37 | WPDHPUPDATE1 ---
History and Physical Update Update Date/Time: 04/13/22 09:37 History and Physical has been reviewed, including an updated exam of the patient. There are NO changes in the patient's condition. Risks, benefits, and alternatives have been discussed and questions answered. Patient agrees to proceed with procedure.
--- NOTE | 2022-04-13 10:03 | W.PM.PROC2 ---
Procedure Note - Detailed Date of Procedure 04/13/22 Pre-op Diagnosis skin laxity, localized adiposity Post-op Diagnosis Same Procedure Performed 1. Bilateral augmentation mammaplasty 2. Progressive tension abdominoplasty with suction lipectomy Surgeon Senthil Rasheed MD Anesthesia General Findings Bilateral dual plane 2 augmentation mammaplasty Cecy Maynard SoftTouch 320cc Silicone Right REF# [id number] SN [id number] Left REF# [id number] SN [id number] Lipoaspirate: 2300 cc Tissue removed abdomen: 1246 grams Description of Procedure They are here today for the above. Previously and again today the risks, benefits, alternatives were discussed in extensive detail. I wanted them to be very realistic about the risks involved as well as expectations. We discussed aftercare and what to monitor for. I was very upfront about the risks of wound breakdown leading to loss of skin, open wounds, and need for additional procedures with permanent abdominal deformity. We discussed DVT/PE risks and management. Made sure answered all of their questions to their satisfaction today and consent was obtained. Marked in the preoperative holding area with their verification. The patient was taken to the operating room placed supine on the operating table. Anesthesia was provided by anesthesiology. A surgical time-out was taken. We cleansed the skin and 1% lidocaine and 0.25% Marcaine with epinephrine was used anesthetize as a field block for the breast. She was prepped and draped in a standard sterile fashion. Breast Tegaderm nipple Graham were placed. A 15 blade used to make an incision along the inframammary fold. Dissection was continued at 45 degree angle until the chest wall as identified. Elevated superficial to pectoralis fascia in a dual plane 2 fashion. I incised the pectoralis major along its inferior border and completely released the inferior border leaving the medial border intact. I created a subpectoral pocket in the appropriate dimensions based on our preoperative planning for the implant. I then copiously irrigated with saline solution and verified a strict hemostasis. Next the use a triple antibiotic and Betadine containing solution to irrigate the pocket. I washed my gloves with the triple antibiotic and Betadine solution. We washed the implant immediately upon opening it with this solution and only opened it when we needed it. I used implant funnel and no-touch technique. The implant was introduced into the pocket using the funnel. Having verified positioning of the implant this was closed using 2-0 Vicryl followed by 3-0 Monocryl in a running subcuticular 4-0 Monocryl followed by tissue glue. Abdomen I placed the patient in a flexed position to verify the upper and lower markings would reach. I then placed supine. A thorough abdominal examination was completed. Stab incisions were made and tumescent solution infiltrated. A liposuction basket cannula was utilized to provide suction lipectomy based on S.A.F.E. technique using a 5mm basket cannula. This was in deep in multiple planes and passes based on pre-operative planning, intraoperative observations, and rolling pinch test which was in full agreement. Patient had been prepped 360 prepped and was turned to each lateral decubitus position to maximize contour. She as placed supine. A 10 blade was used to make the upper incision. I continued dissection down to the level of fascia. Elevated just what was necessary for repair of the diastasis. I then again flexed the bed to verify the upper skin flap would reach the lower markings without tension. Once verified I placed her supine once again and a 10 blade used to make the lower incision. I elevated up to level the umbilicus and left the umbilicus intact on a well-vascularized stalk. The intervening tissue was removed. A 2 mm blunt cannula with 0.5% bupivicaine was injected deep to the fascia bilaterally. I plicated the diasta
[2022-04-13] MEDS: LACTATED RINGERS IRRIG 1,000 ML, LIDOCAINE HCL 1% LOCAL INJ 50 ML, EPINEPHrine HCL INJ ... INFILTRATE (10:11)
[2022-04-13] MEDS: NACL 0.9% IRRIG POUR BOTTLE 900 ML, GENTAMICIN SULFATE INJ 160 MG, ceFAZolin 2 GM, POVI... IRRIGATION (10:11)
[2022-04-13] MEDS: BUPIVACAINE HCL 0.25% PF 30 ML VIAL INFILTRATE (10:11)
[2022-04-13] MEDS: ceFAZolin 2 GM/D5W 50 ML 2 GM/50 ML BAG IVPB (10:11)
[2022-04-13] MEDS: LIDO 1%/EPINEPHRINE/PF 1:200,000 30 ML VIAL XX (10:11)
[2022-04-13] MEDS: TRANEXAMIC ACID 1,000MG/ISO100 1,000 MG/100 ML BAG 200 MG IVPB (10:11)
[2022-04-13] MEDS: ONDANSETRON INJ 4 MG/2 ML VIAL IV PUSH ×2 (15:24→20:53)
[2022-04-13] MEDS: fentaNYL CITRATE INJ (*CRX) 100 MCG/2 ML VIAL 25 MCG IV PUSH ×4 (15:43→15:55)
--- NOTE | 2022-04-13 16:07 | ADMGEN ---
This patient, Adriana Pedraza, was admitted to OB 2nd Floor Room 289-00. Patient/family oriented to hospital policies and general routines including ID bracelet, bed and alarms, visiting hours, pain management, procedures, bathroom and other care routines, personal items, smoking policy, room service/diet, and visiting hours. Information on how to activate the Rapid Response Team has been discussed. Patient/Family are encouraged to report perceived risks to care and to ask questions if they do not understand what they are told or what they should do.
[2022-04-13] MEDS: LACTATED RINGERS 1,000 ML 125 ML IV CONT (16:11)
[2022-04-13 16:58] LABS: Estimated CRCL calculation 95 ml/min; Estimated Glomerular Filt Rate > 60
[2022-04-13] MEDS: MORPHINE SULFATE (*CRX) 2 MG/ML INJ IV PUSH (17:22)
[2022-04-13] MEDS: diazePAM (*CRX) 5 MG TABLET PO (19:12)
[2022-04-13] MEDS: carisoprodoL (*CRX) 350 MG TABLET PO (19:12)
[2022-04-13] MEDS: oxyCODONE/ACETAMINOPHEN (*CRX) 5-325 MG TABLET PO (20:24)
[2022-04-13] MEDS: DOCUSATE SODIUM 100 MG CAPSULE PO (20:44)
[2022-04-13] MEDS: ENOXAPARIN 40 MG/0.4 ML SYRINGE SUB-Q (20:44)
[2022-04-14] MEDS: LACTATED RINGERS 1,000 ML 125 ML IV CONT (00:01)
[2022-04-14] MEDS: MORPHINE SULFATE (*CRX) 2 MG/ML INJ IV PUSH (00:50)
[2022-04-14] MEDS: ONDANSETRON INJ 4 MG/2 ML VIAL IV PUSH ×2 (02:25→09:13)
[2022-04-14] MEDS: oxyCODONE/ACETAMINOPHEN (*CRX) 5-325 MG TABLET PO ×2 (02:25→09:12)
[2022-04-14 04:30] VITALS: BP 104/60; PULSE 83; RESP 18; TEMP 37.2
[2022-04-14] MEDS: carisoprodoL (*CRX) 350 MG TABLET PO ×2 (05:54)
--- NOTE | 2022-04-14 07:04 | WPDPN ---
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 Reposition bed in a more flexed position. Will discharge home. After discharge I am going to see her in my office to evaluate the minimal fullness that she has just left to midline. I will see them back. Today we had a lengthy discussion about the care. This was discussed with her and her in great detail. Went over activity limitations. We discussed DVT prophylaxis options and she is going to use ambulation after discharge. They understand what is a medical emergency. When to proceed to the ER/ dial 911. This was a lengthy open-ended conversation making sure they were well informed. They understand for all their questions to feel free to contact us at any time. I will see her back. (2) Localized adiposity: Code(s): E65 - Localized adiposity Status: Acute (3) Skin laxity: Code(s): L57.4 - Cutis laxa senilis Status: Acute Subjective Date/time seen: 04/14/22 07:04 Interval history: Overnight she did fairly well. She had a little bit of nausea but was able to ambulate. No fevers or chills. No shortness of breath. No chest pain. No calf tenderness. She has some improvement in the nausea this morning. Review of Systems Review of Systems: All systems reviewed & are unremarkable except as noted in HPI and below Exam Narrative: Alert and oriented no obvious distress Respiratory and unlabored Bilateral breasts are soft. No signs of infection. No hematoma. No seroma. She is flatter in position that I would like. Abdomen soft. No signs of infection. Just left of midline she has some fullness (mild). Good color and capillary refill. No calf tenderness. Negative Homans. Objective Data Vital Signs Vital Signs: Vital Signs - 24 hr 04/13/22 08:23 04/13/22 14:43 04/13/22 14:50 Temperature 37.1 C 36.7 C Pulse Rate 80 95 82 Respiratory Rate 20 10 L 12 Blood Pressure 141/91 H 125/89 125/89 Pulse Oximetry 100 100 100 Oxygen Delivery Room Air Simple Face Mask Simple Face Mask Oxygen Flow Rate 8 8 04/13/22 15:00 04/13/22 15:15 04/13/22 15:30 Temperature Pulse Rate 100 99 89 Respiratory Rate 12 12 12 Blood Pressure 145/83 H 138/93 H 137/85 Pulse Oximetry 100 98 95 Oxygen Delivery Simple Face Mask Room Air Room Air Oxygen Flow Rate 8 04/13/22 15:45 04/13/22 15:57 04/13/22 16:15 Temperature Pulse Rate 99 83 Respiratory Rate 12 12 Blood Pressure 137/84 142/75 H Pulse Oximetry 98 96 Oxygen Delivery Room Air Room Air Room Air Oxygen Flow Rate 04/13/22 16:15 04/13/22 19:00 04/13/22 19:00 Temperature 36.9 C 36.4 C Pulse Rate 84 86 Respiratory Rate 16 18 Blood Pressure 123/79 114/78 Pulse Oximetry 96 Oxygen Delivery Room Air Oxygen Flow Rate 04/14/22 00:00 04/13/22 23:00 04/14/22 04:30 Temperature 37.3 C 37.2 C Pulse Rate 88 83 Respiratory Rate 18 18 Blood Pressure 113/76 104/60 Pulse Oximetry Oxygen Delivery Room Air Oxygen Flow Rate 04/14/22 04:30 Temperature Pulse Rate Respiratory Rate Blood Pressure Pulse Oximetry Oxygen Delivery Room Air Oxygen Flow Rate Intake/Output Intake/Output: Intake & Output 04/11/22 04/12/22 04/13/22 04/14/22 23:59 23:59 23:59 23:59 Intake Total 1400 1900 Output Total 1250 Balance 1400 650 Meds/Results Medications: Active Medications Generic Name Dose Route Start Last Admin Trade Name Freq PRN Reason Stop Dose Admin Carisoprodol 350 mg 04/13/22 18:00 04/14/22 05:54 Carisoprodol (*Crx) 350 Mg Tablet PO 350 mg Q6HR MIR Administration Diazepam 5 mg 04/13/22 14:28 04/13/22 19:12 Diazepam (*Crx) 5 Mg Tablet PO 5 mg TID PRN Administration An
--- NOTE | 2022-04-14 07:11 | PM.DS ---
DS: Admitting Diagnosis Discharge Date 04/14/2022 Admitting Diagnosis 1. Micromastia 2. Localized adiposity 3. Skin laxity DS: Discharge Diagnosis Discharge Diagnosis (1) Micromastia: Code(s): N64.82 - Hypoplasia of breast Status: Acute (2) Localized adiposity: Code(s): E65 - Localized adiposity Status: Acute (3) Skin laxity: Code(s): L57.4 - Cutis laxa senilis Status: Acute DS: Summary Hospital Course Hospital Course: Postoperatively from bilateral breast augmentation and progressive tension abdominoplasty with suction lipectomy she has done well. A little bit of nausea which is resolving. Ambulating well. Being enrolled. She does have a little mild fullness just left of midline am going to see her back in clinic to re-evaluate. Will be discharged home. I will see her back. Time Spent with Patient Time attestation: Total time spent providing and/or coordinating discharge services: Exam Narrative: Alert and oriented no obvious distress Respiratory and unlabored Bilateral breasts are soft. No signs of infection. No hematoma. No seroma. She is flatter in position that I would like. Abdomen soft. No signs of infection. Just left of midline she has some fullness (mild). Good color and capillary refill. No calf tenderness. Negative Homans. DS: Data Data Completed and Pending Labs on day of discharge: Labs from last 24 hours 04/13/22 04/13/22 16:43 08:11 Creatinine 0.70 Estim Creat Clear Calc 95 Estimated GFR > 60 Cotinine Negative Discharge Plan Discharge Patient Disposition: Home, Self-Care Discharge Instructions: POST OPERATIVE DISCHARGE INSTRUCTIONS SENTHIL RASHEED M.D. [facility] [address] [place] [address] [address] for 24 hours after anesthesia and while you are taking pain medication. Take all prescribed medication as directed Diet as tolerated. No lifting or activity that raises blood pressure for 48 hours. Regular walking / ambulation. May shower 24 hours after surgery. Once you shower do not take pain medication before showering as the combination of medication and heat may cause you to feel dizzy or pass out. No pools or tubs for 2 weeks. Slowly stand up straight as tolerated. No straining or lifting more than 20 pounds. Call with any questions or concerns. Dressing Care: Continue abdominal binder / foam and surgical bra / sports bra 23 hours per day. If you have any questions or concerns, please call the office . If it is after hours you will be directed to the applications trainer exchange. Shortness of breath, chest pain, or other medical emergency dial 911 / proceed to the Emergency Room. Stand Alone Forms: General Discharge Instructions Follow-up/Referrals: Senthil Rasheed MD [Physician] - 1 Week Discharge Medications: Continued docusate sodium [Colace] 100 mg capsule 100 mg PO DAILY Qty: 14 0RF Rx Instructions: ORDERED FOR POST OP ondansetron HCl 4 mg tablet 4 mg PO Q8H Qty: 21 0RF Rx Instructions: ORDERED FOR POST OP carisoprodol [Soma] 350 mg tablet 350 mg PO TID PRN (Reason: muscle pain) Qty: 21 0RF Rx Instructions: ORDEEERED FOR POST OP USE oxycodone-acetaminophen [Percocet] 5-325 mg tablet 1 tablet PO Q6H PRN (Reason: pain) Qty: 30 0RF Rx Instructions: ORDERED FOR POST OP cetirizine [Zyrtec] 10 mg Tablet 10 mg PO DAILY
[2022-04-14 08:00] VITALS: BP 103/72; PULSE 83; RESP 16; TEMP 37.1; O2SAT 99
--- NOTE | 2022-04-14 09:09 | WPDANESPN ---
Anes - Prog Note Post-Op Date/Time: 04/14/22 09:09 Cardiovascular status: normal Respiratory status: normal Airway patency: baseline Mental status: baseline Post-Op hydration status: normal Vital Signs: Last Vital Signs Temp 37.2 C 04/14/22 04:30 Pulse 83 04/14/22 04:30 Resp 18 04/14/22 04:30 BP 104/60 04/14/22 04:30 Pulse Ox 96 04/13/22 16:15 O2 Del Method Room Air 04/14/22 04:30 O2 Flow Rate 8 04/13/22 15:00 Pain Score (VAS): 3 I/O: Intake & Output 04/13/22 04/14/22 04/14/22 23:59 07:59 15:59 Intake Total 200 1900 Output Total 1250 Balance 200 650 Laboratory Tests 04/13/22 16:43 04/13/22 04/13/22 08:11 16:43 Creatinine 0.70 Estim Creat Clear Calc 95 Estimated GFR > 60 Cotinine Negative Patient Feedback: Patient satisfied with anesthetic care.
[2022-04-14] MEDS: DOCUSATE SODIUM 100 MG CAPSULE PO (09:11)
[2022-04-14] MEDS: LORATADINE 10 MG TABLET PO (09:13)
== END 2022-04-14 10:45 | disposition home or self-care (01) ==
LOC: ANHSURGERY 10:10 → ANHOB2 16:08
PROVIDERS: PCP Family Medicine; Visit Provider Surgery Plastic and Reconstructive Surgery
PROC: (CPT 15877; principal; 2022-04-13 10:00)
PROC: (CPT 15877; 2022-04-13 10:00)
PROC: (CPT 15877; 2022-04-13 10:00)
DX: Z41.1 Encounter for cosmetic surgery (principal); E65 Localized adiposity; N64.82 Hypoplasia of breast; L57.4 Cutis laxa senilis
CPT/HCPCS: 15877; 15830; 15847; 19325; 80307; 82565; 99199; A9270; J0171; J0690; J1100; J1170; J1580; J1650; J2250; J2270; J2405; J2704; J3010; J7120